=== PATIENT | male | born 1985 | race Two or more races ===

== ENCOUNTER 2016-06-01 21:10 | Emergency (ER) | payer SELFPAY ==
[~2016-06-01] VITALS: Ht 152.4 cm; Wt 68.0 kg
[~2016-06-01 21:10] MED LIST: CARAS PO; FOLI-49 PO; OMEG1CAP55 PO; PANT40TA3 PO; THIA100T10 PO
[2016-06-01 21:41] VITALS: Ht 152.4 cm; Wt 68.0 kg
[2016-06-02] MEDS ORDERED: LEVALBUTEROL (NEB) 1.25 MG/0.5 ML AMP INH STA (00:30)
== END 2016-06-02 04:34 | disposition left against medical advice (07) ==
LOC: E/R 21:10
DX: Z53.21 Procedure and treatment not carried out due to patient leaving prior to being seen by health care provider (principal)

== ENCOUNTER 2017-04-11 20:48 | Inpatient (IN) | payer SELFPAY ==
[~2017-04-11] VITALS: Ht 162.6 cm; Wt 67.0 kg
[2017-04-11] MEDS ORDERED: PANTOPRAZOLE IV 80 MG in SOD CHLORIDE 0.9% 100 ML IV STA (21:42)
[2017-04-11] MEDS ORDERED: PANTOPRAZOLE IV 80 MG in SOD CHLORIDE 0.9% 100 ML IVPB STA (21:42)
[2017-04-11] MEDS ORDERED: ONDANSETRON 4 MG INJ IV STA ×3 (21:42→23:35)
[2017-04-11] MEDS ORDERED: SOD CHLORIDE 0.9% 1,000 ML IV STA (21:42)
[2017-04-11 22:02] LABS: ABNORMAL IP MESSAGE 1; BASOPHILS % 0.7 % (0.0-2.0); HEMATOCRIT 34.3 % (42.0-52.0); HEMOGLOBIN 12.1 g/dl (14.0-18.0); LYMPHOCYTES # 0.5 10^3/ul (0.8-2.9); LYMPHOCYTES % 18.2 % (15.0-51.0); MEAN CORPUSCULAR HEMOGLOBIN 30.3 pg (29.0-33.0); MEAN CORPUSCULAR HGB CONC 35.3 g/dl (32.0-37.0); MEAN CORPUSCULAR VOLUME 85.8 fl (82.0-101.0); MONOCYTE # 0.2 10^3/ul (0.3-0.9); MONOCYTES % 6.8 % (0.0-11.0); NEUTROPHIL # 2.2 10^3/ul (1.6-7.5); PLATELET COUNT 119 10^3/UL (140-415); POSITIVE DIFF @See below; RED CELL DISTRIBUTION WIDTH 16.3 % (11.5-14.5); WHITE BLOOD COUNT 2.9 10^3/ul (4.8-10.8)
--- NOTE | 2017-04-11 22:17 | ERD ---
ER Documentation Chief Complaint Chief Complaint vomiting/states been drinking etoh HPI This is a 31-year-old male who was just discharged from [place] emergency room. The patient said he went there because he is vomiting blood in his alcohol abuser. He said they gave him some morphine and did not do any blood work and then discharged him. He said when he got outside from the hospital history of vomiting blood again. He said that he has been vomiting dark blood for the past 2 days off and on. He has nausea but no abdominal pain no back pain. The patient is a poor historian. Patient keeps trying to stick his fingers down his throat to make himself vomit while here. ROS All systems reviewed and are negative except as per history of present illness. Medications Home Meds Discontinued Scripts Thiamine* (Thiamine*) 100 Mg Tablet, 100 MG PO DAILY, #30 TAB Prov:MCINTYRE,TARA V. GAS PIPE LAYER 04/11/16 Folic Acid* (Folic Acid*) 1 Mg Tablet, 1 MG PO DAILY, #30 TAB Prov:MCINTYREANTONIOA V. GAS PIPE LAYER 04/11/16 [place]-3/Dha/Epa/Fish Oil (FISH OIL EC 1,000 MG SOFTGEL) 1 Each Capsule.dr, 1000 MG PO BID, #60 Prov:MCINTYRE,TARA V. G[employer] PIPE LAYER 04/11/16 Sucralfate* (Carafate*) 1 Gm/10 Ml Susp, 1 GM PO QID for 30 Days, EA Prov:MCINTYRE,TARA V. [employer]AYER 04/11/16 Pantoprazole* (Protonix*) 40 Mg Tablet.dr, 40 MG PO BID for 42 Days, TAB Prov:MCINTYREANTONIOA V. G[employer] P[employer] LAYER 04/11/16 Allergies Allergies: Coded Allergies: No Known Allergy (Unverified , 03/22/16) PMhx/Soc Medical and Surgical Hx: pt denies Medical Hx History of Surgery: No Anesthesia Reaction: No Hx Neurological Disorder: No Hx Respiratory Disorders: No Hx Cardiac Disorders: No Hx Psychiatric Problems: No Hx Miscellaneous Medical Probl: No Hx Alcohol Use: Yes Hx Substance Use: No Hx Tobacco Use: No Smoking Status: Never smoker FmHx Family History: No coronary disease Physical Exam Vitals Vital Signs Date Time Temp Pulse Resp B/P Pulse Ox O2 Delivery O2 Flow Rate FiO2 04/11/17 20:53 99.3 96 20 145/95 98 Physical Exam Const: Well-developed, well-nourished Head: Atraumatic, normocephalic Eyes: Normal Conjunctiva, PERRLA, EOMI, normal sclera, no nystagmus ENT: Normal External Ears, Nose and Mouth, moist mucus membranes. Neck: Full range of motion. No meningismus, no lymphadenopathy. Resp: Clear to auscultation bilaterally, no wheezing, rhonchi, rales Cardio: Regular rate and rhythm, no murmurs, S1 S2 present Abd: Soft, non tender x 4, non distended. Normal bowel sounds, no guarding or rebound, no pulsitile abdominal masses or bruits Skin: No petechiae or rashes, no ecchymosis , no maculopapular rash Back: No midline or flank tenderness Ext: No cyanosis, or edema, FROM x 4, normal inspection, neurovascularly intact x 4 Neur: Awake and alert, STR 5/5 x 4, sensation intact x 4, no focal findings, cerebellum intact Psych: Normal Mood and Affect Result Diagram: 04/11/17213904/11/172139 Results 24 hrs Laboratory Tests Test 04/11/17 21:40 White Blood Count 2.910^3/ul Red Blood Count 4.0010^6/ul Hemoglobin 12.1g/dl Hematocrit 34.3% Mean Corpuscular Volume 85.8fl Mean Corpuscular Hemoglobin 30.3pg Mean Corpuscular Hemoglobin Concent 35.3g/dl Red Cell Distribution Width 16.3% Platelet Count 54097^3/UL Mean Platelet Volume 11.0fl Neutrophils % 74.0% Lymphocytes % 18.2% Monocytes % 6.8% Eosinophils % 0.0% Basophils % 0.7% Nucleated Red Blood Cells % 0.0/100WBC Neutrophils # 2.210^3/ul Lymphocytes # 0.510^3/ul Monocytes # 0.210^3/ul Eosinophils # 0.010^3/ul Basophils # 0.010^3/ul Nucleated Red Blood Cells # 0.010^3/ul Prothrombin Time 13.1Sec Prothrombin Time Ratio 1.0 INR International Normalized Ratio 0.99 Activated Partial Thromboplast Time 27.8Sec Sodium Level 146mmol/L Potassium Level 3.6mmol/L Chloride Level 101mmol/L Carbon Dioxide Level 27mmol/L Anion Gap 22 Blood Urea Nitrogen 9mg/dl Creatinine 0.66mg/dl Glucose Level 122mg/dl Calcium Level 8.8mg/dl Total Bilirubin 0.8mg/dl Direct Bilirubin 0.00mg/dl Indirect Bilirubin 0.8mg/dl Aspartate Amino Transf (AST/SGOT) 142IU/L Alanine Aminotransferase (ALT/SGPT) 80IU/L Alkaline Phosphatase 76IU/L Total Protein 8.2g/dl Albumin 4.8g/dl Globulin 3.40g/dl Albumin/Globulin Ratio 1.41 Current Medications Medications (Trade) Dose Ordered Sig/[place] Route PRN Reason Start Time Stop Time Status Last Admin Dose Admin Sodium Chloride 1,000 ml @ 1,000 mls/hr Q1H STAT IV 04/11/17 21:42 04/11/17 22:41 DC 04/11/17 21:53 Pantoprazole 80 mg/Sodium Chloride 100 ml @ 400 mls/hr ONCE STAT IVPB 04/11/17 21:42 04/11/17 21:56 DC 04/11/17 22:09 Pantoprazole/ Sodium Chloride (Protonix Iv/NS) 100 ml @ 10 mls/hr ONCE STAT IV 04/11/17 21:42 04/12/17 07:41 04/11/17 22:09 Ondansetron HCl (Zofran Inj) 4 mg ONCE STAT IV 04/11/17 21:42 04/11/17 21:44 DC 04/11/17 21:56 Hydromorphone HCl (Dilaudid) 1 mg ONCE STAT IV 04/11/17 22:18 04/11/17 22:19 DC 04/11/17 22:22 Ondansetron HCl (Zofran Inj) 4 mg ONCE STAT IV 04/11/17 22:18 04/11/17 22:19 DC 04/11/17 22:22 Procedures/MDM This is a 31-year-old male who is abusing alcohol with upper GI bleed. Is currently on Protonix bolus and drip. Spoke with Dr. jones he will see the patient in consultation. Patient's hemoglobin is relatively stable at this point. Will admit to the hospital for EGD tomorrow Departure Diagnosis: Primary Impression: Upper GI bleed Condition: Stable JAYNA FRANCE DO Apr 11, 2017 22:17
[2017-04-11 22:18] LABS: INR 0.99; PARTIAL THROMBOPLASTIN TIME 27.8 Sec (25.0-35.0); PROTIME 13.1 Sec (12.2-14.2)
[2017-04-11] MEDS ORDERED: HYDROmorphONE 1 MG/ML SYG IV STA ×2 (22:18→23:35)
[2017-04-11 22:19] LABS: ALBUMIN 4.8 g/dl (3.3-4.9); ALBUMIN/GLOBULIN RATIO 1.41; BILIRUBIN,INDIRECT 0.8 mg/dl (0-1.1); BILIRUBIN,TOTAL 0.8 mg/dl (0.2-1.3); CALCIUM 8.8 mg/dl (8.4-10.2); CREATININE 0.66 mg/dl (0.61-1.24); POTASSIUM 3.6 mmol/L (3.5-5.1); TOTAL PROTEIN 8.2 g/dl (6.1-8.1)
[2017-04-11] MEDS ORDERED: SOD CHLORIDE 0.9% 1,000 ML IV SCH (23:25)
[2017-04-11] MEDS ORDERED: ACETAMINOPHEN 325 MG TAB PO PRN (23:30)
[2017-04-11] MEDS ORDERED: ONDANSETRON 4 MG INJ IV PRN (23:30)
[2017-04-11] MEDS ORDERED: SOD CHLORIDE 0.9% 100 ML ONE (23:43)
[2017-04-11] MEDS ORDERED: IOHEXOL 300MG/ML 150 ML BTL ONE (23:43)
--- NOTE | 2017-04-11 23:58 | RADRPT ---
PROCEDURE: CT abdomen and pelvis with contrast. CLINICAL INDICATION: Abdominal pain. TECHNIQUE: CT scan of the abdomen and pelvis with contrast was performed. Coronal images were als o reformatted. 80 cc Omnipaque-300 intravenous contrast was administered without complication. One or more of the following dose reduction techniques were used: Automated exposure control, adjustment of the mA and/or kV according to patient size, use of iterative reconstruction technique. Total exam CTDIvol = 7.97 mGy and DLP = 449.39 mGy-cm. COMPARISON: Noncontrast CT 04/09/2016 FINDINGS: Visualized lower thorax: The lung bases are clear. There is no evidence for pleural effusion. Liver, gallbladder, pancreas and spleen: Diffuse low attenuation of the liver compatible with sever e hepatic steatosis slightly worse compared to the previous exam with normal liver size and contour. There is no evidence for liver mass or ductal dilatation. The gallbladder is unremarkable. No co mmon bile duct dilatation is evident. The pancreas is normal. The spleen is normal, not enlarged. Adrenal glands and genitourinary system: The adrenal glands are normal bilaterally. The kidneys ar e normal in size, contour and attenuation with no evidence for masses, calculi or hydronephrosis. Sy mmetric enhancement of the kidneys is present without evidence of pyelonephritis The ureters are unr emarkable. The urinary bladder shows no abnormality. The prostate gland is normal in size. The vis ualized scrotum is grossly normal. Gastrointestinal system: The stomach, small bowel and large intestine are normal in caliber. There is no evidence of obstruction, ileus or inflammation. The appendix and surrounding fat are normal. Mild thickening of the wall of the cecum, ascending and transverse colon equivocal for colitis. The descending and sigmoid colon is well as rectum are unremarkable for acute abnormality, minimal sigm oid diverticular disease is similar to the previous study. Peritoneum, retroperitoneum, vessels and lymph nodes: The abdominal aorta is normal in caliber. Th ere is no evidence for atherosclerotic calcification. Inferior vena cava is normal in caliber. The re is no evidence for adenopathy. The peritoneal cavity is normal with no evidence for ascites. No pneumoperitoneum is present. Osseous structures and musculoskeletal system: There is no evidence for acute osseous abnormality o r muscular pathology. No subcutaneous abnormalities are present. RPTAT:HJJR IMPRESSION: 1. Collapse of the cecum, ascending and transverse colon lumen with associated wall thickening, find ings equivocal for colitis and correlation with diarrhea is recommended. 2. Hepatic steatosis appears slightly worse compared 04/09/2016. 3. No additional intra-abdominal or intrapelvic abnormalities are demonstrated. Giancarlo Chang Physician Date Time Electronically viewed and signed by Giancarlo Chang Physician on 04/11/2017 23:58 JR/
[2017-04-12] VITALS (21 sets, daily range): BP systolic 117–143; BP diastolic 73–100; PULSE 62–96; RESP 14–22; TEMP 98.3; Ht 162.6 cm; Wt 67.0 kg
[2017-04-12] MEDS ORDERED: LORAZEPAM 2 MG INJ IV PRN (03:30)
[2017-04-12] MEDS ORDERED: NACL 0.9% 3 ML SYG IV SCH (03:30)
[2017-04-12] MEDS ORDERED: ACETAMINOPHEN 650 MG SUPP PR PRN (03:30)
[2017-04-12] MEDS ORDERED: ALBUTEROL/IPRATROPIUM (NEB) 3 ML AMP HHN PRN (03:30)
[2017-04-12] MEDS: LORAZEPAM 2 MG INJ IV PRN ×8 (03:53→19:17)
[2017-04-12] MEDS: DEXTROSE 5%-0.45% NACL 1,000 ML IV SCH ×3 (04:11→19:18)
[2017-04-12 05:31] LABS: ABNORMAL IP MESSAGE 1; BASOPHILS % 0.3 % (0.0-2.0); HEMATOCRIT 30.1 % (42.0-52.0); HEMOGLOBIN 10.5 g/dl (14.0-18.0); LYMPHOCYTES # 0.6 10^3/ul (0.8-2.9); LYMPHOCYTES % 19.9 % (15.0-51.0); MEAN CORPUSCULAR HEMOGLOBIN 30.2 pg (29.0-33.0); MEAN CORPUSCULAR HGB CONC 34.9 g/dl (32.0-37.0); MEAN CORPUSCULAR VOLUME 86.5 fl (82.0-101.0); MONOCYTE # 0.2 10^3/ul (0.3-0.9); MONOCYTES % 8.4 % (0.0-11.0); NEUTROPHILS % 71.1 % (39.0-77.0); PLATELET COUNT 76 10^3/UL (140-415); POSITIVE DIFF @See below; RED BLOOD COUNT 3.48 10^6/ul (4.70-6.10); RED CELL DISTRIBUTION WIDTH 16.1 % (11.5-14.5); WHITE BLOOD COUNT 2.9 10^3/ul (4.8-10.8)
[2017-04-12 06:01] LABS: ALBUMIN 4.3 g/dl (3.3-4.9); ALBUMIN/GLOBULIN RATIO 1.65; BILIRUBIN,INDIRECT 0.8 mg/dl (0-1.1); BILIRUBIN,TOTAL 0.8 mg/dl (0.2-1.3); CREATININE 0.63 mg/dl (0.61-1.24); POTASSIUM 3.4 mmol/L (3.5-5.1); TOTAL PROTEIN 6.9 g/dl (6.1-8.1)
[2017-04-12] MEDS: ONDANSETRON 4 MG INJ IV PRN ×2 (06:17→12:54)
[2017-04-12] MEDS: morphine 2 MG INJ IV PRN ×3 (06:17→17:33)
--- NOTE | 2017-04-12 07:00 | HP ---
Date/Time of Note Date/Time of Note DATE: 04/12/17 TIME: 06:54 Assessment/Plan VTE Prophylaxis VTE Prophylaxis Intervention: SCD's Assessment/Plan Assessment/Plan ASSESSMENT 31-year-old male with a history of alcohol abuse, GI bleed, esophagitis, gastritis with multiple ulcers here with abdominal pain and hematemesis, likely gastric versus esophageal varices PLAN Keep n.p.o. with IV fluid Protonix drip GI consult Social work to help with abstinence from alcohol HPI/ROS Admit Date/Time Admit Date/Time Hx of Present Illness This is a 31-year-old male with a history of alcohol abuse, GI bleed, esophagitis, gastritis who presented to the ER complaining of abdominal pain and vomiting blood. For the past few days he has been binge drinking, mostly with vodka and yesterday he noticed that he vomited blood. He initially went to [facility] ER from where he was discharged home. Hematemesis continued and as such he decided to come here for evaluation. Patient was admitted here a year ago for hematemesis and melena. At that time EGD showed esophagitis and gastritis was multiple erosions. When he presented to the ER today, his hemoglobin was 12.1, platelet [address] abdomen/pelvis showed collapse of the cecum, ascending and transverse colon lumen with associated wall thickening, findings equivocal for colitis PMH/Family/Social Past Surgical History Past Surgical Hx: no surgical history Social History Alcohol Use: none Smoking Status: Never smoker Drug Use: none Exam/Review of Systems Vital Signs Vitals Vital Signs Date Time Temp Pulse Resp B/P Pulse Ox O2 Delivery O2 Flow Rate FiO2 04/12/17 06:40 64 14 132/88 96 Room Air 04/12/17 04:00 98.3 Exam Constitutional: alert, oriented Head: atraumatic, normocephalic Eyes: EOMI, PERRL Respiratory: clear to auscultation, normal air movement Cardiovascular: other (Tachycardic with regular rhythm) Gastrointestinal: soft, tender Extremities: normal pulses Labs Result Diagram: 04/12/1752004/12/17520 Medications Medications Current Medications Sodium Chloride 1,000 ml @ 80 mls/hr [id number] IV ; Start 04/11/17 at 23:25; Stop 04/12/17 at 11:54 Dextrose/Sodium Chloride (D5-1/2ns) 1,000 ml @ 100 mls/hr Q10H IV Last administered on 04/12/17 04:11; Admin Dose 100 MLS/HR; Start 04/12/17 at 03: 27 Ondansetron HCl (Zofran Inj) 4 mg Q6H PRN IV NAUSEA AND/OR VOMITING Last administered on 04/12/17 06:17; Admin Dose 4 MG; Start 04/12/17 at 03:30 Acetaminophen (Tylenol Supp) 650 mg Q6H PRN [place] PAIN LEVEL 1-3 OR FEVER; Start 04/12/17 at 03:30 Morphine Sulfate 2 mg 2 mg Q4H PRN IV PAIN LEVEL 7-10 Last administered on 06:17; Admin Dose 2 MG; Start 04/12/17 at 03:30 Multivitamins/ Thiamine HCl/ Folic Acid/Sodium Chloride (Mvi Adult/ Vitamin B1/ Folic Acid/NS) 1,011.2 ml @ 125 mls/ hr DAILY@09 IVPB ; Start 04/12/17 at 09: 00; Stop 04/15/17 at 08:00 Lorazepam (Ativan) 2 mg Q1H PRN IV withdrawal Last administered on 04/12/17 03:53; Admin Dose 2 MG; Start 04/12/17 at 03:30 Lorazepam 1 mg 1 mg Q2H PRN IV anxiety; Start 04/12/17 at 03:30 Pantoprazole/ Sodium Chloride (Protonix Iv/NS) 100 ml @ 10 mls/hr Q10H IV ; Start 04/12/17 at 07:42 NIKOLE BREEN MD Apr 12, 2017 07:00
--- NOTE | 2017-04-12 08:16 | CONS ---
Date/Time of Note Date/Time of Note DATE: 04/12/17 TIME: 08:09 Assessment/Plan Assessment/Plan Chief Complaint/Hosp Course Assessment: Hematemesis Rule out variceal versus non-variceal Moderate anemia Alcohol abuse/alcoholism Rule out pancreatitis Plan: PPI drip Urgent EGD today. Amylase/lipase Further recommendation will depend on patient findings on patient's clinical course Problems: Consultation Date/Type/Reason Admit Date/Time Date of Consultation: Apr 12, 2017 Type of Consultation: GI Reason for Consultation GI bleeding Hx of Present Illness 31-year-old man, known to GI service from previous evaluation approximately a year ago for similar complaints of hematemesis in relationship to alcohol abuse. At that time the patient had endoscopy that showed esophagitis and gastritis. On this occasion the patient presented to [facility] after experiencing hematemesis multiple times again after significant alcohol abuse. Patient was evaluated and discharged as his hemoglobin appears stable and there was no evidence of active bleeding. The patient went home and had further episodes of hematemesis and for this patient presented to the emergency room. Upon evaluation in the emergency room his hemoglobin is in the 12 g range but the patient intends to retch and have small episodes of hematemesis. For this reason the patient is being admitted for further evaluation. Through the night and with hydration his hemoglobin has dropped to 10. The patient has had no further episodes of hematemesis or melena. He is starting to exhibit withdrawal symptoms and complaints of significant epigastric abdominal pain. At this point the patient will be evaluated endoscopically on an urgent basis. The patient was informed of the procedure including risks, benefits and alternatives. He is agreeable to proceed. Constitutional: improved, no complaints Eyes: no complaints ENT: no complaints Respiratory: no complaints Cardiovascular: no complaints Gastrointestinal: other (See HPI) Genitourinary: no complaints Musculoskeletal: no complaints Neurologic: no complaints, other (Anxious, somewhat restless, tremulous) Endocrine: no complaints Lymphatic: no complaints Psychological: nl mood/affect, no complaints Immunologic: no complaints Past Medical History Alcohol abuse Past Surgical History Past Surgical Hx: no surgical history Family History Significant Family History: no pertinent family hx Social History Alcohol Use: heavy Smoking Status: Never smoker Drug Use: none Exam/Review of Systems Vital Signs Vitals Vital Signs Date Time Temp Pulse Resp B/P Pulse Ox O2 Delivery O2 Flow Rate FiO2 04/12/17 07:48 74 14 135/87 98 Room Air 04/12/17 04:00 98.3 Exam PHYSICAL EXAMINATION: GENERAL: Well developed, well nourished, alert & anxious, oriented 3, in no acute distress SKIN: No lesions, no stigmata chronic liver disease, no evidence of bleeding diathesis LYMPHATIC: No palpable lymphadenopathy. HEAD: Normocephalic, atraumatic, no tenderness. EYES: Pupils equal reactive to light and accommodation, full extraocular movements, sclera clear, non-icteric, no discharge. EARS/NOSE AND THROAT: Ears normal, nose normal, oropharynx normal, oral membranes well hydrated without lesions. NECK: Supple, no masses, thyroid normal, JVP within normal limits, carotids normal without bruits. CHEST: Inspection within normal limits. CARDIOVASCULAR: Heart: Regular rate and rhythm, no murmurs, gallops or rubs. Peripheral pulses present within normal limits, no cyanosis, clubbing or edemas. No pulsatile abdominal mass RESPIRATORY: Lungs clear to auscultation and percussion, no wheezing, no rubs GASTROINTESTINAL AND LIVER: Abdomen: Soft, moderate epigastric tenderness, non- distended, no hernias, no masses, no organomegaly, no ascites, no guarding, no rebound tenderness, normoactive bowel sounds. Rectal: Deferred. GENITOURINARY: [Male genitalia within normal limits.] EXTREMITIES: No cyanosis, clubbing or edema. [MUSCULO-SKELETAL: Gait and station within normal limits, range of motion adequate.] [NEUROLOGIC: Cranial nerves II-XII intact, Motor within normal limits, Sensory within normal limits. Reflexes within normal limits. Tremulous PSYCHIATRIC: Alert & oriented x 3, mood/affect/judgement adequate] Results Result Diagram: 04/12/1752004/12/17520 Results 24 hrs Laboratory Tests Test 04/11/17 21:40 04/11/17 22:35 04/12/17 05:21 White Blood Count 2.9 L 2.9 L Red Blood Count 4.00 L 3.48 L Hemoglobin 12.1 L 10.5 L Hematocrit 34.3 L 30.1 L Mean Corpuscular Volume 85.8 86.5 Mean Corpuscular Hemoglobin 30.3 30.2 Mean Corpuscular Hemoglobin Concent 35.3 34.9 Red Cell Distribution Width 16.3 H 16.1 H Platelet Count 119 L 76 #L Mean Platelet Volume 11.0 #H 10.0 Neutrophils % 74.0 71.1 Lymphocytes % 18.2 19.9 Monocytes % 6.8 8.4 Eosinophils % 0.0 0.0 Basophils % 0.7 0.3 Nucleated Red Blood Cells % 0.0 0.0 Neutrophils # 2.2 2.0 Lymphocytes # 0.5 L 0.6 L Monocytes # 0.2 L 0.2 L Eosinophils # 0.0 0.0 Basophils # 0.0 0.0 Nucleated Red Blood Cells # 0.0 0.0 Prothrombin Time 13.1 Prothrombin Time Ratio 1.0 INR International Normalized Ratio 0.99 Activated Partial Thromboplast Time 27.8 Sodium Level 146 H 141 Potassium Level 3.6 3.4 L Chloride Level 101 99 Carbon Dioxide Level 27 28 Anion Gap 22 H 17 H Blood Urea Nitrogen 9 8 Creatinine 0.66 0.63 Glucose Level 122 123 Calcium Level 8.8 8.0 L Total Bilirubin 0.8 0.8 Direct Bilirubin 0.00 0.00 Indirect Bilirubin 0.8 0.8 Aspartate Amino Transf (AST/SGOT) 142 H 99 H Alanine Aminotransferase (ALT/SGPT) 80 H 71 H Alkaline Phosphatase 76 60 Total Protein 8.2 H 6.9 # Albumin 4.8 4.3 Globulin 3.40 H 2.60 Albumin/Globulin Ratio 1.41 1.65 Ethyl Alcohol Level 221.0 Magnesium Level 1.0 L Medications Medications Current Medications Sodium Chloride 1,000 ml @ 80 mls/hr [id number] IV ; Start 04/11/17 at 23:25; Stop 04/12/17 at 11:54 Dextrose/Sodium Chloride (D5-1/2ns) 1,000 ml @ 100 mls/hr Q10H IV Last administered on 04/12/17 04:11; Admin Dose 100 MLS/HR; Start 04/12/17 at 03: 27 Ondansetron HCl (Zofran Inj) 4 mg Q6H PRN IV NAUSEA AND/OR VOMITING Last administered on 04/12/17 06:17; Admin Dose 4 MG; Start 04/12/17 at 03:30 Acetaminophen (Tylenol Supp) 650 mg Q6H PRN [place] PAIN LEVEL 1-3 OR FEVER; Start 04/12/17 at 03:30 Morphine Sulfate 2 mg 2 mg Q4H PRN IV PAIN LEVEL 7-10 Last administered on 06:17; Admin Dose 2 MG; Start 04/12/17 at 03:30 Multivitamins/ Thiamine HCl/ Folic Acid/Sodium Chloride (Mvi Adult/ Vitamin B1/ Folic Acid/NS) 1,011.2 ml @ 125 mls/ hr DAILY@09 IVPB ; Start 04/12/17 at 09: 00; Stop 04/15/17 at 08:00 Lorazepam (Ativan) 2 mg Q1H PRN IV withdrawal Last administered on 04/12/17 03:53; Admin Dose 2 MG; Start 04/12/17 at 03:30 Lorazepam 1 mg 1 mg Q2H PRN IV anxiety; Start 04/12/17 at 03:30 Pantoprazole/ Sodium Chloride (Protonix Iv/NS) 100 ml @ 10 mls/hr Q10H IV ; Start 04/12/17 at 07:42 Copies To: CC: AQUILINO WALTON MD, MORDO MD Apr 12, 2017 08:16
--- NOTE | 2017-04-12 09:12 | HPN ---
Date/Time of Note Date/Time of Note DATE: 04/12/17 TIME: 09:12 Interval H&P Admission Note Pt. seen H&P reviewed: No system changes AQUILINO WALTON MD Apr 12, 2017 09:12
[2017-04-12] MEDS ORDERED: PROPOFOL 100 ML ONE (09:42)
--- NOTE | 2017-04-12 09:57 | OPPN ---
Date/Time of Note Date/Time of Note DATE: 04/12/17 TIME: 09:55 Proc Note GI Procedure Date 04/12/17 Indication: other (GI bleeding) Pre-procedure Diagnosis GI bleeding/hematemesis Ethanol abuse Post-procedure Diagnosis Impression: Severe erosive esophagitis. No esophageal varices. Alcoholic gastritis with erosions. Plan: Continue PPI therapy Monitor H&H and transfuse as necessary Clear liquid diet and advance as tolerated Alcohol withdrawal syndrome management . Procedure Performed: Endoscopy Surgeon AQUILINO WALTON MD See signature line Rewind Operator none Anesthesia Type: MAC Anesthesiologist: PAXTON SHEA MD Tourniquet Time none EBL none Transfusion required none Biopsy 1: None Grafts/Implants none Tubes/Drains none Complication(s) none Disposition: other (ICU) Procedure Description After informed consent, with the patient/relatives understanding the procedure, its indications, potential risks and complications, including but not limited to : allergic reaction, bleeding, perforation or infection, and after all pertinent questions were answered to the patients satisfaction, the patient/ relatives signed witnessed informed consent. Following this, premedication was administered slowly IV push under careful cardiovascular and respiratory monitoring with pulse oximetry, automatic blood pressure, and ekg monitor tech. Once the sedative effect was achieved the patient was place in the left lateral decubitus, the panendoscope was introduced and advanced under visual control. Careful examination of the upper gastrointestinal tract, both on insertion as well as withdrawal of the instrument disclosing the following findings: ESOPHAGUS: the mucosa of the entire esophagus was carefully examined and showed the following findings: There is erythema, edema and erosions of the distal esophagus. No varices are present. Otherwise the mucosa appears within normal limits. There is no evidence of varices, neoplasm, or stricture. No Hiatal Hernia identified. STOMACH: Upon entrance to the stomach air was insufflated, the gastric gamboa distended normally. The mucosa of the fundus, body and antrum of the stomach was carefully examined both head-on and on retroflexion, and showed the following findings: There is erythema edema and superficial erosion of the mucosa in a diffuse pattern. Findings are consistent with alcoholic gastritis. Otherwise the mucosa appears within normal limits with no abnormalities. There is no evidence of ulcers or neoplasm. PYLORUS: The pylorus was carefully examined and showed the following findings: the pylorus appears patent and within normal limits, with no evidence of gastric outlet obstruction. DUODENUM: The duodenal mucosa was carefully examined in the duodenal bulb as well as the second portion of the duodenum and showed the following findings: the mucosa appears unremarkable with no evidence of duodenitis, ulcer or neoplasm AQUILINO WALTON MD Apr 12, 2017 09:57
[2017-04-12] MEDS ORDERED: PROPOFOL 200 MG INJ IV ONE (10:00)
[2017-04-12] MEDS ORDERED: PROPOFOL 200 MG INJ IV SCH (10:30)
[2017-04-12] MEDS: MULTIVITAMINS 10 ML, THIAMINE 100 MG, FOLIC ACID 1 MG in SOD CHLORIDE 0.9% 1,000 ML IVPB SCH (11:22)
[2017-04-12] MEDS: PANTOPRAZOLE IV 80 MG in SOD CHLORIDE 0.9% 100 ML IV SCH ×3 (11:24→22:00)
[2017-04-12] MEDS: METOCLOPRAMIDE 10 MG INJ IV SCH ×2 (11:45→17:02)
[2017-04-12 12:36] LABS: HEMATOCRIT 31.2 % (42.0-52.0); HEMOGLOBIN 10.9 g/dl (14.0-18.0)
[2017-04-12] MEDS ORDERED: INFLUENZA VIRUS VACCINE 0.5 ML (DISPENSING) IM* ONE (13:30)
[2017-04-12 18:49] LABS: HEMATOCRIT 32.2 % (42.0-52.0); HEMOGLOBIN 11.3 g/dl (14.0-18.0)
[2017-04-13] VITALS (18 sets, daily range): BP systolic 113–140; BP diastolic 71–100; PULSE 60–78; RESP 11–20
[2017-04-13] MEDS: morphine 2 MG INJ IV PRN ×4 (00:11→20:12)
[2017-04-13] MEDS: METOCLOPRAMIDE 10 MG INJ IV SCH ×5 (00:27→23:46)
[2017-04-13 00:34] LABS: HEMATOCRIT 31.2 % (42.0-52.0); HEMOGLOBIN 11.2 g/dl (14.0-18.0)
[2017-04-13 05:25] LABS: ABNORMAL IP MESSAGE 1; POSITIVE DIFF @See below
[2017-04-13 05:46] LABS: HEMATOCRIT 31.1 % (42.0-52.0); MEAN CORPUSCULAR HEMOGLOBIN 30.2 pg (29.0-33.0); MEAN CORPUSCULAR HGB CONC 35.4 g/dl (32.0-37.0); MEAN CORPUSCULAR VOLUME 85.4 fl (82.0-101.0); RED BLOOD COUNT 3.64 10^6/ul (4.70-6.10); WHITE BLOOD COUNT 4.8 10^3/ul (4.8-10.8)
[2017-04-13 05:47] LABS: RED CELL DISTRIBUTION WIDTH 15.2 % (11.5-14.5)
[2017-04-13 05:49] LABS: MEAN PLATELET VOLUME 10.7 fl (7.4-10.4); PLATELET COUNT 71 10^3/UL (140-415)
[2017-04-13 05:53] LABS: CALCIUM 7.5 mg/dl (8.4-10.2); CREATININE 0.59 mg/dl (0.61-1.24); MAGNESIUM 1.1 mg/dl (1.7-2.5); PHOSPHORUS 3.8 mg/dl (2.5-4.9)
[2017-04-13] MEDS: DEXTROSE 5%-0.45% NACL 1,000 ML IV SCH ×2 (05:56→06:17)
[2017-04-13] MEDS ORDERED: POTASSIUM CHLORIDE (SR) 20 MEQ TAB PO ONE (06:38)
[2017-04-13] MEDS: MAGNESIUM SULFATE 2 GM/50 ML 50 ML IVPB SCH ×3 (07:12→10:28)
[2017-04-13] MEDS: ONDANSETRON 4 MG INJ IV PRN (08:36)
[2017-04-13] MEDS: PANTOPRAZOLE IV 80 MG in SOD CHLORIDE 0.9% 100 ML IV SCH ×2 (08:41→21:07)
--- NOTE | 2017-04-13 09:41 | PN ---
Date/Time of Note Date/Time of Note DATE: 04/13/17 TIME: 09:33 Assessment/Plan VTE Prophylaxis VTE Prophylaxis Intervention: SCD's Lines/Catheters IV Catheter Type (from [facility]): Peripheral IV Urinary Cath still in place: Yes Reason Cath still needed: other (indicate) (monitor output) Assessment/Plan Chief Complaint/Hosp Course Assessment: Hematemesis Rule out variceal versus non-variceal EGD 04/12/17 Impression: Severe erosive esophagitis. No esophageal varices. Alcoholic gastritis with erosions. Moderate anemia Alcohol abuse/alcoholism Rule out pancreatitis Plan: Continue PPI therapy Monitor H&H and transfuse as needed Advance as tolerated Alcohol withdrawal syndrome management Further recommendation will depend on patient findings on patient's clinical course Pt seen in collaboration with Dr. Domínguez Subjective: Course reviewed with nursing staff Patient interviewed and examined All labs, imaging and other results reviewed The patient resting in bed currently appears stable, has ativan PRN for alcohol withdrawal, hgb stable will continue to monitor PHYSICAL EXAMINATION: GENERAL: Well developed, well nourished, alert & anxious, oriented 3, in no acute distress SKIN: No lesions, no stigmata chronic liver disease, no evidence of bleeding diathesis LYMPHATIC: No palpable lymphadenopathy. HEAD: Normocephalic, atraumatic, no tenderness. EYES: Pupils equal reactive to light and accommodation, full extraocular movements, sclera clear, non-icteric, no discharge. EARS/NOSE AND THROAT: Ears normal, nose normal, oropharynx normal, oral membranes well hydrated without lesions. NECK: Supple, no masses, thyroid normal, JVP within normal limits, carotids normal without bruits. CHEST: Inspection within normal limits. CARDIOVASCULAR: Heart: Regular rate and rhythm, no murmurs, gallops or rubs. Peripheral pulses present within normal limits, no cyanosis, clubbing or edemas. No pulsatile abdominal mass RESPIRATORY: Lungs clear to auscultation and percussion, no wheezing, no rubs GASTROINTESTINAL AND LIVER: Abdomen: Soft, moderate epigastric tenderness, non- distended, no hernias, no masses, no organomegaly, no ascites, no guarding, no rebound tenderness, normoactive bowel sounds. Rectal: Deferred. GENITOURINARY:[Male genitalia within normal limits. EXTREMITIES: No cyanosis, clubbing or edema. Problems: Exam/Review of Systems Vital Signs Vitals Vital Signs Date Time Temp Pulse Resp B/P Pulse Ox O2 Delivery O2 Flow Rate FiO2 04/13/17 09:00 69 15 128/92 94 Room Air 04/13/17 08:00 98.7 Intake and Output 04/12/17 04/12/17 04/13/17 15:00 23:00 07:00 Intake Total 860 ml 1130 ml 970 ml Output Total 1330 ml 485 ml Balance 860 ml -200 ml 485 ml Results Result Diagram: 04/13/17 0454 04/13/17 0454 Results 24 hrs Laboratory Tests Test 04/12/17 12:16 04/12/17 18:36 04/13/17 00:32 04/13/17 04:54 Hemoglobin 10.9 L 11.3 L 11.2 L 11.0 L Hematocrit 31.2 L 32.2 L 31.2 L 31.1 L White Blood Count 4.8 # Red Blood Count 3.64 L Mean Corpuscular Volume 85.4 Mean Corpuscular Hemoglobin 30.2 Mean Corpuscular Hemoglobin Concent 35.4 Red Cell Distribution Width 15.2 H Platelet Count 71 L Mean Platelet Volume 10.7 H Neutrophils % Lymphocytes % Monocytes % Eosinophils % Basophils % Nucleated Red Blood Cells % 0.0 Neutrophils # Lymphocytes # Monocytes # Eosinophils # Basophils # Nucleated Red Blood Cells # Sodium Level 138 Potassium Level 3.0 L Chloride Level 100 Carbon Dioxide Level 29 Anion Gap 12 Blood Urea Nitrogen 3 L Creatinine 0.59 L Glucose Level 101 Calcium Level 7.5 L Phosphorus Level 3.8 Magnesium Level 1.1 L Medications Medications Current Medications Dextrose/Sodium Chloride (D5-1/2ns) 1,000 ml @ 100 mls/hr Q10H IV Last administered on 04/13/17 06:17; Admin Dose 100 MLS/HR; Start 04/12/17 at 03: 27 Ondansetron HCl (Zofran Inj) 4 mg Q6H PRN IV NAUSEA AND/OR VOMITING Last administered on 04/13/17 08:36; Admin Dose 4 MG; Start 04/12/17 at 03:30 Acetaminophen (Tylenol Supp) 650 mg Q6H PRN [place] PAIN LEVEL 1-3 OR FEVER; Start 04/12/17 at 03:30 Morphine Sulfate 2 mg 2 mg Q4H PRN IV PAIN LEVEL 7-10 Last administered on 04:58; Admin Dose 2 MG; Start 04/12/17 at 03:30 Multivitamins/ Thiamine HCl/ Folic Acid/Sodium Chloride (Mvi Adult/ Vitamin B1/ Folic Acid/NS) 1,011.2 ml @ 125 mls/ hr DAILY@09 IVPB Last administered on 11:22; Admin Dose 125 MLS/HR; Start 04/12/17 at 09:00; Stop 04/15/17 at 08:00 Lorazepam (Ativan) 2 mg Q1H PRN IV withdrawal Last administered on 04/12/17 19:17; Admin Dose 2 MG; Start 04/12/17 at 03:30 Lorazepam 1 mg 1 mg Q2H PRN IV anxiety; Start 04/12/17 at 03:30 Pantoprazole/ Sodium Chloride (Protonix Iv/NS) 100 ml @ 10 mls/hr Q10H IV Last administered on 04/13/17 08:41; Admin Dose 10 MLS/HR; Start 04/12/17 at 07:42 Metoclopramide HCl (Reglan) 10 mg Q6 IV Last administered on 04/13/17 05:59; Admin Dose 10 MG; Start 04/12/17 at 12:00 Influenza Virus Vaccine 0.5 ml 0.5 ml ONCE ONCE IM* ; Start 04/13/17 at 10:00; Stop 04/13/17 at 10:01 Magnesium Sulfate (Magnesium Sulfate 2 Gm/50 ml) 50 ml @ 25 mls/hr Q2H IVPB Last administered on 04/13/17 08:25; Admin Dose 25 MLS/HR; Start 04/13/17 at 06:30; Stop 04/13/17 at 12:29 TOBY KATHLEEN Apr 13, 2017 09:41
[2017-04-13] MEDS ORDERED: INFLUENZA VIRUS VACCINE 0.5 ML (DISPENSING) IM* ONE (10:00)
[2017-04-13 10:05] LABS: AMYLASE 59 U/L (11-123)
--- NOTE | 2017-04-13 10:14 | PN ---
Date/Time of Note Date/Time of Note DATE: 04/13/17 TIME: 10:10 Assessment/Plan VTE Prophylaxis VTE Prophylaxis Intervention: SCD's Lines/Catheters IV Catheter Type (from Nrs): Peripheral IV Urinary Cath still in place: Yes Reason Cath still needed: urinary retention Assessment/Plan Chief Complaint/Hosp Course A/P: 31-year-old male with a history of alcohol abuse, GI bleed, esophagitis, gastritis who presented to the ER complaining of abdominal pain and vomiting blood. 1. abd pain with hematemesis-status post EGD with findings of severe erosive esophagitis, no esophageal varices, + alcoholic gastritis with erosions. -Continue PPI per GI recommendations, monitor for any signs of bleeding -Monitor H&H 2. Alcohol abuse: Monitor for signs of withdrawal, banana bag, Ativan as needed , consider Librium 3. Thrombocytopenia: Possibly secondary to liver disease -Avoid all anticoagulants, monitor CBC daily 4. Low electrolytes: Replete magnesium and potassium low. Critical care time spent on patient care today equals 45 minutes. Problems: Subjective 24 Hr Interval Summary Free Text/Dictation Patient required multiple doses of Ativan yesterday, tried to get out of bed yesterday evening, otherwise during the night no acute events. Per nursing staff tolerating diet. Exam/Review of Systems Vital Signs Vitals Vital Signs Date Time Temp Pulse Resp B/P Pulse Ox O2 Delivery O2 Flow Rate FiO2 04/13/17 09:00 69 15 128/92 94 Room Air 04/13/17 08:00 98.7 Intake and Output 04/12/17 04/12/17 04/13/17 14:59 22:59 06:59 Intake Total 725 ml 1155 ml 1080 ml Output Total 1205 ml 610 ml Balance 725 ml -50 ml 470 ml Exam Constitutional: alert, oriented Head: atraumatic, normocephalic Eyes: EOMI, PERRL Respiratory: clear to auscultation, normal air movement Cardiovascular: S1 S2 Gastrointestinal: soft, tender Extremities: normal pulses Results Result Diagram: 04/13/17 0454 04/13/17 0454 Results 24 hrs Laboratory Tests Test 04/12/17 12:16 04/12/17 18:36 04/13/17 00:32 04/13/17 04:54 Hemoglobin 10.9 L 11.3 L 11.2 L 11.0 L Hematocrit 31.2 L 32.2 L 31.2 L 31.1 L White Blood Count 4.8 # Red Blood Count 3.64 L Mean Corpuscular Volume 85.4 Mean Corpuscular Hemoglobin 30.2 Mean Corpuscular Hemoglobin Concent 35.4 Red Cell Distribution Width 15.2 H Platelet Count 71 L Mean Platelet Volume 10.7 H Neutrophils % Lymphocytes % Monocytes % Eosinophils % Basophils % Nucleated Red Blood Cells % 0.0 Neutrophils # Lymphocytes # Monocytes # Eosinophils # Basophils # Nucleated Red Blood Cells # Sodium Level 138 Potassium Level 3.0 L Chloride Level 100 Carbon Dioxide Level 29 Anion Gap 12 Blood Urea Nitrogen 3 L Creatinine 0.59 L Glucose Level 101 Calcium Level 7.5 L Phosphorus Level 3.8 Magnesium Level 1.1 L Medications Medications Current Medications Dextrose/Sodium Chloride (D5-1/2ns) 1,000 ml @ 100 mls/hr Q10H IV Last administered on 04/13/17 06:17; Admin Dose 100 MLS/HR; Start 04/12/17 at 03: 27 Ondansetron HCl (Zofran Inj) 4 mg Q6H PRN IV NAUSEA AND/OR VOMITING Last administered on 04/13/17 08:36; Admin Dose 4 MG; Start 04/12/17 at 03:30 Acetaminophen (Tylenol Supp) 650 mg Q6H PRN [place] PAIN LEVEL 1-3 OR FEVER; Start 04/12/17 at 03:30 Morphine Sulfate 2 mg 2 mg Q4H PRN IV PAIN LEVEL 7-10 Last administered on 04:58; Admin Dose 2 MG; Start 04/12/17 at 03:30 Multivitamins/ Thiamine HCl/ Folic Acid/Sodium Chloride (Mvi Adult/ Vitamin B1/ Folic Acid/NS) 1,011.2 ml @ 125 mls/ hr DAILY@09 IVPB Last administered on 11:22; Admin Dose 125 MLS/HR; Start 04/12/17 at 09:00; Stop 04/15/17 at 08:00 Lorazepam (Ativan) 2 mg Q1H PRN IV withdrawal Last administered on 04/12/17 19:17; Admin Dose 2 MG; Start 04/12/17 at 03:30 Lorazepam 1 mg 1 mg Q2H PRN IV anxiety; Start 04/12/17 at 03:30 Pantoprazole/ Sodium Chloride (Protonix Iv/NS) 100 ml @ 10 mls/hr Q10H IV Last administered on 04/13/17 08:41; Admin Dose 10 MLS/HR; Start 04/12/17 at 07:42 Metoclopramide HCl 10 mg 10 mg Q6 IV Last administered on 04/13/17 05:59; Admin Dose 10 MG; Start 04/12/17 at 12:00 Magnesium Sulfate (Magnesium Sulfate 2 Gm/50 ml) 50 ml @ 25 mls/hr Q2H IVPB Last administered on 04/13/17 08:25; Admin Dose 25 MLS/HR; Start 04/13/17 at 06:30; Stop 04/13/17 at 12:29 YAW HOPKINS Apr 13, 2017 10:14
[2017-04-13 10:46] LABS: REACTIVE LYMPHOCYTES% (M) 2 % (0-0)
[2017-04-13 11:19] LABS: HEMOGLOBIN 11.4 g/dl (14.0-18.0)
[2017-04-13] MEDS: MULTIVITAMINS 10 ML, THIAMINE 100 MG, FOLIC ACID 1 MG in SOD CHLORIDE 0.9% 1,000 ML IVPB SCH (11:33)
[2017-04-13] MEDS: CHLORDIAZEPOXIDE 25 MG CAP PO SCH ×2 (13:29→21:07)
[2017-04-13 18:32] LABS: HEMATOCRIT 33.1 % (42.0-52.0); HEMOGLOBIN 11.6 g/dl (14.0-18.0)
[2017-04-13] MEDS: LORAZEPAM 2 MG INJ IV PRN (22:34)
[2017-04-14 00:04] VITALS: PULSE 70
[2017-04-14 00:39] LABS: HEMOGLOBIN 11.4 g/dl (14.0-18.0)
[2017-04-14] MEDS: DEXTROSE 5%-0.45% NACL 1,000 ML IV SCH (01:59)
[2017-04-14 03:48] VITALS: BP 128/83; RESP 20
[2017-04-14 04:03] VITALS: PULSE 90
[2017-04-14] MEDS: METOCLOPRAMIDE 10 MG INJ IV SCH (05:46)
[2017-04-14 07:33] LABS: HEMATOCRIT 32.7 % (42.0-52.0); HEMOGLOBIN 11.5 g/dl (14.0-18.0)
[2017-04-14 07:53] LABS: MAGNESIUM 1.8 mg/dl (1.7-2.5); PHOSPHORUS 4.4 mg/dl (2.5-4.9)
[2017-04-14 08:04] VITALS: PULSE 59
[2017-04-14] MEDS: LORAZEPAM 2 MG INJ IV PRN (08:28)
[2017-04-14] MEDS: MULTIVITAMINS 10 ML, THIAMINE 100 MG, FOLIC ACID 1 MG in SOD CHLORIDE 0.9% 1,000 ML IVPB SCH (08:28)
[2017-04-14 08:31] VITALS: BP 120/70; RESP 17
[2017-04-14] MEDS: CHLORDIAZEPOXIDE 25 MG CAP PO SCH (09:00)
[2017-04-14] MEDS: PANTOPRAZOLE IV 80 MG in SOD CHLORIDE 0.9% 100 ML IV SCH (09:05)
--- NOTE | 2017-04-14 11:22 | DS ---
Date/Time of Note Date/Time of Note DATE: 04/14/17 TIME: 11:21 Discharge Summary Admission/Discharge Info Admit Date/Time Apr 11, 2017 at 23:26 Discharge Date/Time Apr 14, 2017 at 09:16 Discharge Diagnosis 1. abd pain, ETOH abuse - pt left AMA Patient Condition: Guarded Hospital Course A/P: 31-year-old male with a history of alcohol abuse, GI bleed, esophagitis, gastritis who presented to the ER complaining of abdominal pain and vomiting blood. 1. abd pain with hematemesis-status post EGD with findings of severe erosive esophagitis, no esophageal varices, + alcoholic gastritis with erosions. -Continue PPI per GI recommendations, monitor for any signs of bleeding -Monitor H&H 2. Alcohol abuse: Monitor for signs of withdrawal, banana bag, Ativan as needed , consider Librium 3. Thrombocytopenia: Possibly secondary to liver disease -Avoid all anticoagulants, monitor CBC daily 4. Low electrolytes: Replete magnesium and potassium low. Critical care time spent on patient care today equals 45 minutes. Home Meds Discontinued Scripts Thiamine* (Thiamine*) 100 Mg Tablet, 100 MG PO DAILY, #30 TAB Prov:MCINTYRE,TARA V. [employer] PROCESSOR 04/11/16 Folic Acid* (Folic Acid*) 1 Mg Tablet, 1 MG PO DAILY, #30 TAB Prov:MCINTYRE,TARA V. [employer]URE PROCESSOR 04/11/16 [place]-3/Dha/Epa/Fish Oil (FISH OIL EC 1,000 MG SOFTGEL) 1 Each Capsule.dr, 1000 MG PO BID, #60 Prov:MCINTYRE,TARA V. D[employer]URE PROCESSOR 04/11/16 Sucralfate* (Carafate*) 1 Gm/10 Ml Susp, 1 GM PO QID for 30 Days, EA Prov:MCINTYRE,TARA V. [employer]URE PROCESSOR 04/11/16 Pantoprazole* (Protonix*) 40 Mg Tablet.dr, 40 MG PO BID for 42 Days, TAB Prov:MCINTYRETARA V. DENTURE PROCESSOR 04/11/16 Primary Care Provider Care Physician No Primary Time spent on discharge: left AMA Pending Labs Laboratory Tests Test 04/13/17 18:18 04/14/17 00:31 04/14/17 07:00 Hemoglobin 11.6g/dl (14.0-18.0) 11.4g/dl (14.0-18.0) 11.5g/dl (14.0-18.0) Hematocrit 33.1% (42.0-52.0) 32.0% (42.0-52.0) 32.7% (42.0-52.0) Phosphorus Level 4.4mg/dl (2.5-4.9) Magnesium Level 1.8mg/dl (1.7-2.5) YAW HOPKINS. Apr 14, 2017 11:22
== END 2017-04-14 09:16 | disposition left against medical advice (07) | DRG 392 ==
LOC: E/R 20:48 → ICU 23:26 → TEL 04-13 14:06
PROVIDERS: ADMIT Internal Medicine; ATTEND Internal Medicine
PROC: 0DJ08ZZ Inspection of Upper Intestinal Tract, Via Natural or Artificial Opening Endoscopic (ICD-10-PCS; principal; 2017-04-12 09:00)
DX: K29.20 Alcoholic gastritis without bleeding (principal); D69.6 Thrombocytopenia, unspecified; K22.10 Ulcer of esophagus without bleeding; D64.9 Anemia, unspecified; F10.20 Alcohol dependence, uncomplicated; E87.6 Hypokalemia; E83.42 Hypomagnesemia; Y90.7 Blood alcohol level of 200-239 mg/100 ml
CPT/HCPCS: 36415; 74177; 80048; 80053; 80306; 82150; 83690; 83735; 84100; 85014; 85018; 85025; 85610; 85730; 86850; 86900; 86901; 87081; 90686; 96374; 96375; 96376; C9113; J1170; J2060; J2270; J2405; J2765; J3411; J3475; J7030; J7042; Q9967

== ENCOUNTER 2017-05-18 19:52 | Emergency (ER) | payer SELFPAY ==
[~2017-05-18] VITALS: Ht 170.2 cm; Wt 63.3 kg
[2017-05-18 20:05] VITALS: Ht 170.2 cm; Wt 63.3 kg
== END 2017-05-19 02:38 | disposition left against medical advice (07) ==
LOC: FTE 19:52
DX: Z53.21 Procedure and treatment not carried out due to patient leaving prior to being seen by health care provider (principal)